=== PATIENT | female | born 1995 ===

== ENCOUNTER 2020-06-25 21:56 | Emergency (ER) | payer SELFPAY ==
[~2020-06-25] VITALS: Ht 154.9 cm; Wt 117.0 kg
[2020-06-25 22:10] VITALS: BP 158/89; Ht 154.9 cm; Wt 117.0 kg
[2020-06-26] MEDS ORDERED: KEFLEX500 MG PO (17:47)
[2020-06-26] MEDS ORDERED: MACROBID100 MG PO (17:47)
== END 2020-06-25 23:58 | disposition home or self-care (01) ==
LOC: D.ER 21:56
DX: G89.18 Other acute postprocedural pain (principal); Z48.00 Encounter for change or removal of nonsurgical wound dressing

== ENCOUNTER 2020-06-26 15:29 | Emergency (ER) | payer SELFPAY ==
[~2020-06-26] VITALS: Ht 154.9 cm; Wt 116.8 kg
[2020-06-26 16:37] LABS: BASOPHILS 0.2 % (0-2); EOSINOPHILS 3.2 % (0-7); HEMATOCRIT 33.4 % (36.0-48.0); HEMOGLOBIN 10.6 g/dL (12-16); IMMATURE GRANULOCYTES 0.5 % (0-5); LYMPHOCYTES 14.4 % (15-50); MCH 27.5 pg (26.0-34.0); MCHC 31.7 g/dL (31.0-37.0); MCV 86.8 fL (80.0-100.0); MEAN PLATELET VOLUME 10.3 fL (7.4-10.4); MONOCYTES 5.4 % (2-11); NEUTROPHILS 76.3 % (40-80); PLATELET COUNT 370 10x3/uL (130-400); RBC 3.85 10x6/uL (4.00-5.40); RDW 16.4 % (11.5-14.5); WBC 11.6 10x3/uL (4.8-10.8)
[2020-06-26 16:53] LABS: CALC OSMOLALITY 273 mosm/kg (275-300); CARBON DIOXIDE 24.4 mmol/L (21.0-32.0); CHLORIDE - SERUM 105 mmol/L (98-107); CREATININE - SERUM 0.7 mg/dL (0.6-1.3); GLUCOSE 79 mg/dL (74-106); POTASSIUM - SERUM 4.2 mmol/L (3.5-5.1); SODIUM 138 mmol/L (136-145); UREA NITROGEN 9 mg/dL (7-18); eGFR NON AFRICAN AMERICAN > 90 mL/min (90-120)
[2020-06-26 16:58] LABS: ALBUMIN 2.5 g/dL (3.4-5.0); ALKALINE PHOSPHATASE 116 U/L (30-120); ALT (SGPT) 18 U/L (10-68); BILIRUBIN - TOTAL 0.56 mg/dL (0.2-1.3); PROTEIN - SERUM 6.5 g/dL (6.4-8.2)
[2020-06-26 17:22] LABS: BILIRUBIN NEGATIVE (NEGATIVE); KETONE NEGATIVE (NEGATIVE); NITRITE NEGATIVE (NEGATIVE); UROBILINOGEN NORMAL (NORMAL)
[2020-06-26 17:25] LABS: EPITHELIAL CELLS 0-5 /hpf (0-5); RED CELLS - URINE >50 /hpf (0-5); WHITE CELLS - URINE 25-50 /hpf (NEGATIVE)
[2020-06-26 17:26] LABS: BACTERIA MODERATE /hpf (NEGATIVE)
[2020-06-26] MEDS ORDERED: KEFLEX500 MG PO (17:47)
[2020-06-26] MEDS ORDERED: MACROBID100 MG PO (17:47)
== END 2020-06-26 18:13 | disposition home or self-care (01) ==
LOC: D.ER 15:29
DX: N39.0 Urinary tract infection, site not specified (principal); R30.0 Dysuria; R51 Headache; R50.9 Fever, unspecified; J45.909 Unspecified asthma, uncomplicated; K21.9 Gastro-esophageal reflux disease without esophagitis